=== PATIENT | female | born 1975 | race American Indian/Alaskan Native ===

== ENCOUNTER 2018-07-22 08:16 | Outpatient (CLI) | payer MEDICAID | END 2018-07-22 08:17 | disposition home or self-care (01) | LOC: CARDIO 08:16 ==

== ENCOUNTER 2018-09-07 06:03 | Day surgery (SDC) | payer MEDICAID ==
[2018-07-22 14:31] VITALS: BMI 33.3
--- NOTE | 2018-08-20 06:58 | HP ---
DATE OF EXAM: 08/19/2018 REASON FOR ADMISSION: Admission for left heart cath, possible angioplasty. BRIEF CLINICAL HISTORY: This is a 43-year-old female, obese with body mass index of 33.3 kg/m2 with past medical history significant for left-sided chest pain, complaining of dyspnea on exertion and chest pain on exertion. The patient underwent a stress test, approved by insurance only a regular stress test ,so the patient walked on the treadmill and complained of severe chest pain. Treadmill was stopped because the patient experienced chest pain. Total treadmill time was 7 minutes and 40 seconds, but the patient was complaining of chest pain, so it was stopped. The patient was seen in office, still complaining of dyspnea on exertion and chest pain on exertion. PAST MEDICAL HISTORY: Significant for COPD, obesity, and asthma; taking multiple pain medications including tramadol as well. RECENT CARDIAC WORKUP: As follows: Patient underwent a stress test. Insurance was approved only for regular stress test. Patient walked on the treadmill for a total duration of 7 minutes and 40 seconds, but patient experienced chest pain, so it was stopped. Date of stress test, 07/22/2018. FAMILY HISTORY: Significant for coronary artery disease. SOCIAL HISTORY: Denies any smoking. Denies any history of alcohol abuse. CURRENT MEDICATIONS: Patient at home was taking tramadol 50 mg t.i.d. p.r.n., beclomethasone inhaler, albuterol inhaler, and Advair Diskus 1 puff b.i.d. ALLERGIES: TO PENICILLIN. PHYSICAL EXAMINATION: VITAL SIGNS: Height of the patient 5 feet 2 inches. Weight of the patient 182 pounds. Body mass index 33 kg/m2. Rest of the vitals; temperature afebrile, blood pressure 110/70, heart rate 70. HEENT: PERRLA. Extraocular muscles intact. NECK: Supple. No carotid bruits. No thyromegaly. CHEST: Clear to auscultation. HEART: S1 and S2, regular. ABDOMEN: Soft. EXTREMITIES: Clubbing and cyanosis are negative. LABORATORY DATA: Blood work is pending. IMPRESSION AND PLAN: A 43-year-old obese female with past medical history significant for chronic obstructive pulmonary disease, asthma, last one year ago, with complaints of chest pain on exertion and dyspnea on exertion. Patient underwent stress test regular that was approved by the insurance and the patient walked on the treadmill for 7 minutes and 40 seconds; after that the patient developed chest pain, so stress test was stopped. In view of the above dyspnea on exertion and chest pain on exertion, multiple risk factors including obesity, patient is scheduled for cardiac catheterization, possible angioplasty. Risks, benefits, and alternatives discussed with the patient. Patient agreed to proceed for cardiac catheterization. We will await for the blood workup. When it is available, we will review, and we will load with Plavix and aspirin. Further recommendations after the cardiac catheterization. Thank you Dr. Sahu for providing us an opportunity in taking care of patient, Destiny Awan. Dean Pelaez MD cc: Dr. David Sahu
[2018-09-07 06:59] LABS: BASO # 0.03 K/mm3 (0.0-2.0); BASO % 0.3 % (0.0-3.0); EOS # 0.2 (0.0-0.7); EOS % 2.6 % (1.5-5.0); HEMOGLOBIN 11.1 g/dL (12.0-16.0); LYMPH # 3.3 (1.2-3.4); LYMPH % 35.4 % (22.0-35.0); MEAN CELL VOLUME 88.4 fl (80.0-105.0); MEAN CORPUSCULAR HGB CONC 31.6 g/dl (31.0-37.0); MEAN PLATELET VOLUME 9.3 fl (7.0-11.0); MONO # 0.4 (0.1-0.6); MONO % 4.7 % (1.0-6.0); RBC 3.97 10^6/uL (3.5-6.1); RED CELL DISTRIBUTION WIDTH 14.5 % (11.5-14.5); WHITE BLOOD COUNT 9.2 10^3/uL (4.5-11.0)
[2018-09-07 07:08] LABS: INR 0.98; PARTIAL THROMBOPLASTIN TIME 34.9 Seconds (26.9-38.3); PROTHROMBIN TIME 11.1 SECONDS (9.4-12.5)
[2018-09-07 07:12] LABS: BLOOD UREA NITROGEN 12 mg/dL (7-21); CALCIUM 8.6 mg/dL (8.4-10.5); GFR NON-AFRICAN AMERICAN > 60; HDL CHOLESTEROL 49 mg/dL (29-60)
[2018-09-07] MEDS ORDERED: Phenylephrine 10 mg/ml Inj ONE (07:16)
[2018-09-07] MEDS ORDERED: Iohexol 350mgl/ml 50 ML ONE (07:17)
[2018-09-07] MEDS ORDERED: Lidocaine PF 2% (5 ml) Inj (For Cardiac Arrhy) ONE (07:17)
[2018-09-07] MEDS ORDERED: Nitroglycerin 50mg in D5W 50 MG/250 ML BOTTLE IV ONE (07:17)
[2018-09-07] MEDS ORDERED: Iodixanol 320 MG/ML 100 ML BOTTLE IV ONE (07:17)
[2018-09-07] MEDS ORDERED: Iodixanol 320 MG/ML 200 ML BOTTLE IV ONE (07:17)
[2018-09-07 07:22] LABS: LDL CHOLESTEROL 97 mg/dL (0-129)
[2018-09-07] MEDS ORDERED: Verapamil 2 ML ONE (07:24)
[2018-09-07] MEDS ORDERED: Famotidine 20mg/50ml 20 MG/50 ML BAG IVPB ONE (07:24)
[2018-09-07] MEDS ORDERED: DiphenhydrAMINE 50 mg/ml Inj ONE (07:24)
[2018-09-07] MEDS ORDERED: Midazolam 2 MG/2 ML VIAL ONE (08:01)
[2018-09-07] MEDS ORDERED: Bacitracin 500 Units/gm Oint Foilpak UD TOP ONE (08:39)
[2018-09-07] MEDS ORDERED: Sodium Chloride 0.9% 1,000 ML IV SCH (08:45)
[2018-09-07 09:01] VITALS: TEMP 97.8
--- NOTE | 2018-09-07 09:26 | CPOSTOP ---
DATE: 09/07/2018 CARDIOVASCULAR LAB POST PROCEDURE DICTATING PHYSICIAN: Dean Pelaez MD ENVELOPE PATTERNMAKER: Ngozi Fernandez signal maintenance technician. TYPE OF ANESTHESIA: Moderate conscious sedation. Total 2 mg of Versed, 100 of fentanyl given, periodically started with 1 mg of Versed and 50 of fentanyl. PRE-PROCEDURE DIAGNOSES: Unstable angina, abnormal stress test. PROCEDURE PERFORMED: Left heart catheterization. FINDINGS: Normal coronaries, preserved LV function. FINAL DIAGNOSIS: Normal coronaries, preserved LV function and obesity. POST-PROCEDURE CONDITION: The patient condition is stable. VASCULAR ACCESS SITE: Left radial. CLOSURE DEVICE: TR Band. TOTAL RADIATION DOSE: 4051 milligray unit. CUMULATIVE DOSE: 530 milligray unit. FLUORO TIME: 3.1 minutes. TOTAL CONTRAST USED: 30 mL. Dean Pelaez MD MTDD
[2018-09-07 09:46] VITALS: O2SAT 97
--- NOTE | 2018-09-07 10:01 | CARD ---
APPROVED REPORT Date of service: 09/07/2018 EKG Measurement Heart [id number] <Conclusion> Normal sinus rhythm Possible Left atrial enlargement Left ventricular hypertrophy ST elevation, consider early repolarization.
[2018-09-07 10:16] VITALS: RESP 18
[2018-09-07] MEDS ORDERED: Bacitracin 500 Units/gm Oint Foilpak UD ONE (11:05)
[2018-09-07 11:20] VITALS: BP 103/61; PULSE 78
--- NOTE | 2018-09-07 13:52 | CARD ---
APPROVED REPORT Date of service: 09/07/2018 Procedure(s) performed: Left Heart Catheterization HISTORY The patient is a 43 year-old female with a history of : chronic lung disease, hypertension , Recurrent chest pain,had stress test on 07/22/2018 walked on [employer] for 7 minutes and 40 seconds but stopped B/c chest pain, Pt was seen in office multiple times c/o Chest pain and BUNDY, on Multiple pain meds as well.. INDICATION The indication(s) include : positive stress test, chest pain, dyspnea. CASE TECHNIQUE The patient was brought electively to the Cardiac Catheterization Laboratory in a fasting state and was prepped and draped in a sterile manner. The left wrist was infiltrated with 2% Lidocaine subcutaneous anesthesia. A 6FR GLIDESHitwiseTH ACCESS KIT sheath was inserted into the left radial artery without difficulty. Coronary angiography was performed using coronary diagnostic catheters. The left coronary system was accessed and visualized with a Diagnostic,5F JL 4 CATH DXT 100 CM catheter. The right coronary system was accessed and visualized with a Diagnostic ,5F JR 4 CATH DXT 100 CM catheter. The left ventricle was accessed and visualized with a 5F JL 4 CATH DXT 100 CM catheter. Left ventricular/Aortic Valve gradient assessed on pullback. Left ventriculogram was performed in DAMON projection. Closure device was deployed with a Fr TR Band (Regular) without any complications. The patient tolerated the procedure well and there were no complications associated with the procedure. Vessel Analysis The patient's coronary anatomy is co-dominant. The left main coronary artery is a large size vessel without significant stenosis. The left main bifurcates to the left anterior descending and circumflex. The left anterior descending artery is a large size vessel with intimal irregularities. The first diagonal branch is a large size vessel with intimal irregularities. The circumflex artery is a medium size vessel without significant stenosis. The first obtuse marginal branch is a medium size vessel with intimal irregularities and without significant stenosis. The second obtuse marginal branch is a small size vessel with intimal irregularities and without significant stenosis. The left posterior descending artery is a medium size vessel with intimal irregularities and without significant stenosis. The right coronary artery is a large size vessel without significant stenosis. The right posterior descending artery is a medium size vessel without significant stenosis. The right posterolateral branch is a medium size vessel without significant stenosis. Left Ventricle The left ventricle is normal in size with normal contractility. There was no cardiomyopathy. The left ventricular ejection fraction is estimated to be 55%. The left ventricular end diastolic pressure is 14 mmHg. There was no gradient across the aortic valve upon pullback. Conclusion Normal coronaries, Preserved LV Fx. EF-55%, EDP-14 mmof Hg Recommendations Aggressive Medical TherapyCardiac Risk Reduction Program Weight Loss Reduction Program W/u for Non cardiac chest pain. CC; Dr. Steven Rouse MD
== END 2018-09-07 12:30 | disposition home or self-care (01) ==
LOC: CATH 06:03
PROVIDERS: ATTEND Internal Medicine Cardiovascular Disease
DX: I20.0 Unstable angina (principal); R06.00 Dyspnea, unspecified; I10 Essential (primary) hypertension; E66.9 Obesity, unspecified
CPT/HCPCS: 36415; 80048; 80061; 84703; 85025; 85610; 85730; 86850; 86900; 93005; 93458; 99152; C1769; J1200; J1644 ×2; J2250; J2930; J3010; J7030; Q9966